=== PATIENT | female | born 1960 | race American Indian/Alaskan Native ===

== ENCOUNTER 2017-03-13 05:53 | Day surgery (SDC) | payer MEDICARE, OTHER ==
[2017-03-13] MEDS ORDERED: Sodium Chloride 0.9% 10 ML Syringe FLUSH PRN (06:00)
[2017-03-13] MEDS ORDERED: Dextrose 5%-0.45% NaCl 1,000 ML IV SCH (06:00)
[2017-03-13] MEDS ORDERED: fentaNYL 100 MCG/2 ML SDV ONE (06:15)
[2017-03-13] MEDS ORDERED: Midazolam 1 MG/ML 2 ML SDV ONE (06:15)
[2017-03-13] MEDS ORDERED: fentaNYL 100 MCG/2 ML SDV IV ONE ×3 (06:46→15:37)
[2017-03-13] MEDS ORDERED: Midazolam 1 MG/ML 2 ML SDV IV ONE ×3 (06:48→15:37)
[2017-03-13 08:56] VITALS: BP 107/43
--- NOTE | 2017-03-13 09:04 | LETTER ---
03/13/2017 Linda Posadas NP [facility] [address] [place] [address] RE: PEDRO SIDNEYMARKUS VENEGAS : 1960 Dear Ms. Posadas: Ms. Sidney Ellis had esophagogastroduodenoscopy done this morning and she tolerated the procedure well. I herewith send a copy of the endoscopy note and photographs for your review. Thank you. Sincerely, [facility] /[id number]
--- NOTE | 2017-03-13 11:16 | OR ---
DATE: 03/13/2017 PROCEDURE: Esophagogastroduodenoscopy and multiple pinch biopsies. INSTRUMENT USED: GIF-H180 Olympus video panendoscope. PREMEDICATIONS: No oral topical anesthesia used. Fentanyl 100 mcg intravenous, Versed 2 mg intravenous. Nasal O2 cannula. 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 INDICATION: Diabetic with previous gastric bypass surgery on long-term PPI with persistent upper abdominal pain, unexplained, and not responsive to present medical measures, also recently found to have iron-deficiency anemia. Esophagogastroduodenoscopy is performed for detection of any active erosive lesions, malignancy also under consideration, H. pylori status to be determined, small bowel biopsies to be obtained for celiac disease if indicated, endoscopic hemostasis therapy if needed. DESCRIPTION OF PROCEDURE: The scope was passed with ease. Adequate visualization of the esophagus was made from proximal to distal areas. No upper esophageal lesions identified. No distal esophageal stricture. No uphill or downhill esophageal varices. No Claudia-Villanueva tear. No evidence of erosive esophagitis by [place] criteria. No esophageal polyp or tumor mass identified. Z-line was seen at around 40 cm distal to the oral verge, configuration consistent with grade 1 by ZAP classification. No proximal gastric varices noted. Gastric fundus examination by retroflexion showed no polypoid lesions. No gastric ulcer, malignant mass, or vascular ectasia identified. Visualized loops of the small bowel were unremarkable. Multiple pinch biopsies, 4 in number were taken from the duodenum and sent for any histopathologic evidence of celiac disease. Multiple pinch biopsies were also taken from the distal and proximal gastric mucosa and sent for PyloriTek test for H. pylori and histopathology. Visualized surgical site showed no pathologic lesions. Gastric fundus examination by retroflexion showed no polypoid lesions. No bleeding was noted from any of the visualized areas at the completion of examination. Photographs were taken of the surgical site, gastric fundus, as well as well as distal esophagus. IMPRESSION: Status post gastric bypass surgery. The patient tolerated the procedure well. [facility] /[id number]
== END 2017-03-13 09:05 | disposition home or self-care (01) ==
LOC: DL.ENDO 05:53
PROVIDERS: ATTEND Internal Medicine Gastroenterology
DX: K29.50 Unspecified chronic gastritis without bleeding (principal); E66.01 Morbid (severe) obesity due to excess calories; I10 Essential (primary) hypertension; E78.5 Hyperlipidemia, unspecified; G47.33 Obstructive sleep apnea (adult) (pediatric); Z88.8 Allergy status to other drugs, medicaments and biological substances; Z98.84 Bariatric surgery status
CPT/HCPCS: 43239; 87077; J2250; J3010; J7042; 88305

== ENCOUNTER 2018-01-26 13:25 | Emergency (ER) | payer MEDICARE, OTHER ==
[2018-01-26] MEDS ORDERED: Sodium Chloride 0.9% 10 ML Syringe FLUSH PRN (14:29)
[2018-01-26 15:28] LABS: CHLORIDE,CL 103 mmol/L (101-111); SODIUM,NA 140 mmol/L (135-145)
[2018-01-26] MEDS ORDERED: Albuterol/Ipratropium 3.0-0.5 MG/3 ML Neb Soln NEB ONE (15:49)
[2018-01-26] MEDS ORDERED: GI Cocktail Oral Solution 30 ML PO ONE (15:49)
--- NOTE | 2018-01-26 16:16 | EDM.PDOC ---
Scribed by Nirali Phillips 01/26/18 1616 for London Hyde MD ED HPI GENERAL MEDICAL PROBLEM - General Chief Complaint: Respiratory Problem Stated Complaint: [id number] CANT BREATHE STOMACH PAIN Time Seen by Provider: 01/26/18 14:09 Source of Information: Reports: Patient, RN, RN Notes Reviewed History Limitations: Reports: No Limitations - History of Present Illness INITIAL COMMENTS - FREE TEXT/NARRATIVE: Patient presents by POV with complaint of increasing shortness of breath for 2 days. Also with increased acid reflux and constipation. Denies fever or chills. Denies cough, wheezing, orthopnea, chest pain or increased edema. Patient reports history of asthma. She is not sure if her current symptoms are related to asthma or not. Onset Date: 01/24/18 Duration: Getting Worse Location: Reports: Chest Quality: Reports: Ache Severity: Mild Improves with: Reports: None Worsens with: Reports: Eating Associated Symptoms: Reports: No Other Symptoms Epigastric Pain Score (Numeric/FACES): 3 - Related Data Allergies Allergy/AdvReac Type Severity Reaction Status Date / Time aminophylline Allergy Shortness Verified 01/26/18 13:49 of Breath iodine Allergy Shortness Verified 01/26/18 13:49 of Breath metformin Allergy UNKNOWN Verified 01/26/18 13:49 rosuvastatin Allergy intolerance Verified 01/26/18 13:49 simvastatin Allergy Diarrhea Verified 01/26/18 13:49 Home Meds: Home Meds Albuterol Sulfate 2.5 mg IH Q4HRRT PRN 08/15/14 [History] Albuterol Sulfate [Albuterol Sulfate HFA] 2 puff INH Q4HRRT PRN 08/15/14 [ History] Aspirin [Halfprin] 325 tab PO BEDTIME 08/15/14 [History] Carvedilol 1 tab PO BID 08/15/14 [History] Furosemide [Furosemide] 1 tab PO DAILY 08/15/14 [History] Insulin Aspart [NovoLOG] 12 - 20 units SQ TID 08/15/14 [History] Insulin Detemir [Levemir] 35 units SQ BID 08/15/14 [History] Lisinopril [Lisinopril] 1 tab PO DAILY 08/15/14 [History] amLODIPine Besylate [Amlodipine Besylate] 2.5 mg PO DAILY 08/15/14 [History] Calcium Carbonate [Tums] 1 tab PO DAILY PRN 09/28/14 [History] Dexlansoprazole [Dexilant] 60 mg PO DAILY 09/28/14 [History] Alendronate [Fosamax] 1 tab PO .WEEKLY 03/12/17 [History] Ergocalciferol (Vitamin D2) [Vitamin D2] 1 tab PO WEEKLY 03/12/17 [History] Fluticasone Propionate [Flonase] 1 spray INH ASDIRECTED PRN 03/12/17 [History] Fluticasone/Vilanterol [Breo Ellipta 100-25 MCG Inhalation Kit] 1 unit INH DAILY 03/12/17 [History] Mag Hydrox/Al Hydrox/Simeth [Maalox Maximum Strength Susp] 15 ml PO QID [History] Multivitamin [Multivitamins] 1 tab PO DAILY 03/12/17 [History] Vitamin B Complex 1 tab PO DAILY 03/12/17 [History] Ferrous Sulfate 324 mg PO BID 01/26/18 [History] Past Medical History HEENT History: Reports: Hard of Hearing, Impaired Vision, Sinusitis, Other (See Below) Other HEENT History: wears glasses, hearing loss L) ear, deviated nasal septum Cardiovascular History: Reports: High Cholesterol, Hypertension Respiratory History: Reports: Asthma, Bronchitis, Recurrent, Sleep Apnea Other Respiratory History: emphysema Gastrointestinal History: Reports: Chronic Diarrhea, GERD, Hepatitis Genitourinary History: Reports: None 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: Musculoskeletal History: Reports: Arthritis, Back Pain, Chronic, Fracture Neurological History: Reports: TIA Other Neuro History: degenerative joint disease of knee Psychiatric History: Reports: None Other Psychiatric History: hx alcoholism Endocrine/Metabolic History: Reports: Diabetes, Type II Hematologic History: Reports: Anemia, B12 Deficiency, Iron Deficiency Other Hematologic History: Vitamin D deficiency Immunologic History: Reports: None Oncologic (Cancer) History: Reports: Ovarian Dermatologic History: Reports: None - Infectious Disease History Infectious Disease History: Reports: Hepatitis A, Measles, Mumps - Past Surgical History Head Surgeries/Procedures: Reports: None GI Surgical History: Reports: Appendectomy, Cholecystectomy, Colonoscopy, Other (See Below) Other GI Surgeries/Procedures: obese Female Surgical History: Reports: Breast Biopsy, Section, Oophorectomy, Tubal Ligation Social & Family History - Family History Family Medical History: Noncontributory - Tobacco Use Smoking Status *Q: Never Smoker Years of Tobacco use: 15 Used Tobacco, but Quit: Yes Month Tobacco Last Used: 11/09/2003 Second Hand Smoke Exposure: No - Caffeine Use Caffeine Use: Reports: Soda, Tea - Alcohol Use Days Per Week of Alcohol Use: 0 - Recreational Drug Use Recreational Drug Use: No - Living Situation & Occupation Living situation: Reports: , with Family ED ROS GENERAL - Review of Systems Review Of Systems: ROS reveals no pertinent complaints other than HPI. ED EXAM, GENERAL - Physical Exam Exam: See Below Exam Limited By: No Limitations General Appearance: Alert, WD/WN, No Apparent Distress, Obese Nose: Normal Inspection, Normal Mucosa, No Blood Throat/Mouth: Normal Inspection, Normal Lips, Normal Teeth, Normal Gums, Normal Oropharynx, Normal Voice, No Airway Compromise Head: Atraumatic, Normocephalic Neck: Normal Inspection, Supple, Non-Tender, Full Range of Motion Respiratory/Chest: No Respiratory Distress, Lungs Clear, No Accessory Muscle Use , Chest Non-Tender, Decreased Breath Sounds. No: Rales, Rhonchi, Wheezing Cardiovascular: Normal Peripheral Pulses, Regular Rate, Rhythm, No Gallop, No JVD, No Murmur, No Rub, Other (trace pedal edema, stable/chronic for patient.) GI/Abdominal: Normal Bowel Sounds, Soft, No Distention, Tender (mild epigastric tenderness,otherwise benign obese abdomen.). No: Guarding, Rigid, Rebound (Female) Exam: Deferred Rectal (Female) Exam: Deferred Back Exam: Normal Inspection, Full Range of Motion, NT Extremities: Normal Range of Motion, Non-Tender Neurological: Alert, Oriented, CN II-XII Intact, Normal Cognition, Normal Gait, No Motor/Sensory Deficits Psychiatric: Normal Affect, Normal Mood Skin Exam: Warm, Dry, Intact, Normal Color, No Rash EKG INTERPRETATION EKG Date: 01/26/18 Time: 14:31 Rhythm: Other (sinus bradycardia) Rate (Beats/Min): 57 [place]: LAD-Left [place] Deviation (borderline) P-Wave: Present QRS: Normal ST-T: Normal QT: Prolonged Course - Vital Signs Last Recorded V/S: Last Vital Signs Temp 36.1 C 01/26/18 13:42 Pulse 81 01/26/18 16:05 Resp 20 01/26/18 16:05 BP 172/76 H 01/26/18 13:42 Pulse Ox 96 01/26/18 16:05 - Orders/Labs/Meds Orders: Active Orders 24 hr Category Date Time Status EKG 12 Lead [EKG Documentation Completion] [RC] STAT Care 01/26/18 14:29 Active Peripheral IV Care [RC] . DIRECTED Care 01/26/18 14:29 Active RT Aerosol Therapy [RC] ASDIRECTED Care 01/26/18 15:49 Active Abdomen 2V AP Upright Decub [CR] Urgent Exams 01/26/18 14:31 Taken Chest 2V [CR] Stat Exams 01/26/18 14:30 Taken Sodium Chloride 0.9% [Saline Flush] Med 01/26/18 14:29 Active 10 ml FLUSH ASDIRECTED PRN Peripheral IV Insertion Adult [OM.PC] Stat Oth 01/26/18 14:29 Ordered Medication Orders Sodium Chloride (Saline Flush) 10 ml FLUSH ASDIRECTED PRN PRN Reason: Keep Vein Open Last Admin: 01/26/18 15:04 Dose: 10 ml Labs: Laboratory Tests 01/26/18 01/26/18 01/26/18 Range/Units 14:59 14:59 15:03 WBC 10.9 H (5.0-10.0) 10^3/uL RBC 5.48 H (4.2-5.4) 10^6/uL Hgb 14.8 (12.0-16.0) g/dL Hct 43.3 (37.0-47.0) % MCV 79.0 L (80-100) fL MCH 27.0 (27.0-34.0) pg MCHC 34.2 (33.0-35.0) g/dL Plt Count 270 (150-450) 10^3/uL Neut % (Auto) 71.6 (42.2-75.2) % Lymph % (Auto) 20.2 L (20.5-50.1) % Phillips % (Auto) 5.9 (2-8) % Eos % (Auto) 1.7 (1.0-3.0) % Baso % (Auto) 0.6 (0.0-1.0) % Sodium 140 (135-145) mmol/L Potassium 3.7 (3.6-5.0) mmol/L Chloride 103 (101-111) mmol/L Carbon Dioxide 28.0 (21.0-31.0) mmol/L Anion Gap 12.7 BUN 11 (7-18) mg/dL Creatinine 0.7 (0.6-1.3) mg/dL Est Cr Clr Drug Dosing 89.45 mL/min Estimated GFR (MDRD) > 60 BUN/Creatinine Ratio 15.71 Glucose 113 H (74-105) mg/dL Calcium 9.4 (8.4-10.2) mg/dl Total Bilirubin 0.4 (0.2-1.0) mg/dL AST 34 (10-42) IU/L ALT 27 (10-60) IU/L Alkaline Phosphatase 126 H (42-121) IU/L Troponin I < 0.02 (0.00-0.02) ng/ml B-Natriuretic Peptide 73 (0-100) pg/ml Total Protein 7.8 (6.7-8.2) g/dl Albumin 4.1 (3.2-5.5) g/dl Globulin 3.7 Albumin/Globulin Ratio 1.11 Urine Color Yellow (YELLOW) Urine Appearance Clear (CLEAR) Urine pH 5.5 (5.0-9.0) Ur Specific [place] <= 1.005 (1.005-1.030) Urine Protein Negative (NEGATIVE) Urine Glucose (UA) Negative (NEGATIVE) Urine Ketones Negative (NEGATIVE) Urine Occult Blood Negative (NEGATIVE) Urine Nitrite Negative (NEGATIVE) Urine Bilirubin Negative (NEGATIVE) Urine Urobilinogen 0.2 (0.2-1.0) mg/dL Ur Leukocyte Esterase Moderate H (NEGATIVE) Urine RBC Not seen /HPF Urine WBC 0-5 (0-5/HPF) /HPF Ur Epithelial Cells Few /HPF Urine Bacteria Rare (0-FEW/HPF) /HPF Meds: Medications Generic Name Dose Route Start Last Admin Trade Name Freq PRN Reason Stop Dose Admin Sodium Chloride 10 ml 01/26/18 14:29 01/26/18 15:04 Saline Flush FLUSH 10 ml ASDIRECTED PRN Administration Keep Vein Open Discontinued Medications Generic Name Dose Route Start Last Admin Trade Name Freq PRN Reason Stop Dose Admin Al Hydroxide/Mg Hydroxide 30 ml 01/26/18 15:49 01/26/18 15:52 Gi Cocktail PO 01/26/18 15:50 30 ml ONETIME ONE Administration Albuterol/Ipratropium 3 ml 01/26/18 15:49 01/26/18 15:57 Duoneb 3.0-0.5 Mg/3 Ml NEB 01/26/18 15:50 3 ml ONETIME ONE Administration - Radiology Interpretation Free Text/Narrative:: X-ray abdomen: No acute findings. See rad report. X-ray chest: No acute cardiopulmonary process. See rad report. Departure - Departure Time of Disposition: 16:12 Disposition: Home, Self-Care 01 Condition: Fair Clinical Impression: Shortness of breath, History of asthma GERD (gastroesophageal reflux disease) Qualifiers: Esophagitis presence: esophagitis presence not specified Qualified Code(s): K21.9 - Gastro-esophageal reflux disease without esophagitis - Discharge Information Instructions: Shortness of Breath, Adult, [id number], Asthma, Adult, Easy-to- Read, Food Choices for Gastroesophageal Reflux Disease, Child, [place] Diet Forms: ED Department Discharge Additional Instructions: Use Albuterol inhaler 2 puffs every 4 hours while awake. Continue your current medications as prescribed. May use Maalox and [id number] laxative as needed. Follow up with your primary doctor in the next week if not improved. Return to ER at any time. - My Orders Last 24 Hours: My Active Orders 01/26/18 14:29 EKG 12 Lead [EKG Documentation Completion] [RC] STAT Peripheral IV Care [RC] . DIRECTED Sodium Chloride 0.9% [Saline Flush] 10 ml FLUSH ASDIRECTED PRN Peripheral IV Insertion Adult [OM.PC] Stat 01/26/18 14:30 Chest 2V [CR] Stat 01/26/18 14:31 Abdomen 2V AP Upright Decub [CR] Urgent 01/26/18 15:49 RT Aerosol Therapy [RC] ASDIRECTED - Assessment/Plan Last 24 Hours: My Active Orders 01/26/18 14:29 EKG 12 Lead [EKG Documentation Completion] [RC] STAT Peripheral IV Care [RC] . DIRECTED Sodium Chloride 0.9% [Saline Flush] 10 ml FLUSH ASDIRECTED PRN Peripheral IV Insertion Adult [OM.PC] Stat 01/26/18 14:30 Chest 2V [CR] Stat 01/26/18 14:31 Abdomen 2V AP Upright Decub [CR] Urgent 01/26/18 15:49 RT Aerosol Therapy [RC] ASDIRECTED I have read and agree with the documentation that has been completed regarding this visit. By signing this record, I attest that the documentation was completed in my physical presence and is an accurate record of the encounter.
[2018-01-26 16:22] VITALS: BP 137/51
--- NOTE | 2018-01-29 11:39 | EKG ---
01/26/2018 - SIDNEY VASQUEZ - EKG shows heart rate of 57. Rhythm of sinus bradycardia. There is a prolonged QT interval with a QTc of 511 and left axis deviation. [facility] /[id number]
== END 2018-01-26 16:23 | disposition home or self-care (01) ==
LOC: DL.ED 13:25
DX: J45.909 Unspecified asthma, uncomplicated (principal); K21.9 Gastro-esophageal reflux disease without esophagitis; I10 Essential (primary) hypertension; E78.00 Pure hypercholesterolemia, unspecified; E11.9 Type 2 diabetes mellitus without complications; Z87.891 Personal history of nicotine dependence; Z79.4 Long term (current) use of insulin; Z79.82 Long term (current) use of aspirin; Z79.51 Long term (current) use of inhaled steroids; Z79.899 Other long term (current) drug therapy; Z88.8 Allergy status to other drugs, medicaments and biological substances
CPT/HCPCS: 36415; 71046; 74021; 80053; 81001; 83880; 84484; 85025; 93005; 94640; 99285; A9270; J7050; 93010

== ENCOUNTER 2021-06-18 19:52 | Emergency (ER) | payer MEDICARE, OTHER ==
[2021-06-18] MEDS ORDERED: Acetaminophen/HYDROcodone 325-5 MG Tab PO ONE ×2 (19:53→22:43)
[2021-06-18 20:27] VITALS: BP 157/62; PULSE 66
--- NOTE | 2021-06-18 20:53 | EDM.PDOC ---
ED HPI GENERAL MEDICAL PROBLEM - General Chief Complaint: Lower Extremity Injury/Pain Stated Complaint: FELT A POP / CAN'T STAND ON LEG Time Seen by Provider: 06/18/21 20:33 Source of Information: Reports: Patient, RN History Limitations: Reports: No Limitations - History of Present Illness INITIAL COMMENTS - FREE TEXT/NARRATIVE: 61-year-old female with a history of a left foot drop who presents to the ER for an evaluation of left knee pain. Patient reports that she was trying to get off the toilet to her wheelchair and felt a pop in her left knee about an hour prior to ER visit. Patient reports she normally ambulates with a walker but she was just going to use the bathroom so she decided to use her wheelchair instead. She reports pain has been worse with ambulation. She has not tried anything for pain. Left Knee Pain Score (Numeric/FACES): 6 - Related Data Allergies Allergy/AdvReac Type Severity Reaction Status Date / Time aminophylline Allergy Shortness Verified 01/26/18 13:49 of Breath iodine Allergy Shortness Verified 01/26/18 13:49 of Breath metformin Allergy UNKNOWN Verified 01/26/18 13:49 rosuvastatin Allergy intolerance Verified 01/26/18 13:49 simvastatin Allergy Diarrhea Verified 01/26/18 13:49 Home Meds: Home Meds Albuterol Sulfate 2.5 mg IH Q4HRRT PRN 08/15/14 [History] Albuterol Sulfate [Albuterol Sulfate HFA] 2 puff INH Q4HRRT PRN 08/15/14 [History] Aspirin [Halfprin] 325 tab PO BEDTIME 08/15/14 [History] Furosemide 1 tab PO DAILY 08/15/14 [History] Insulin Aspart [NovoLOG] 12 - 20 units SQ TID 08/15/14 [History] Insulin Detemir [Levemir] 35 units SQ BID 08/15/14 [History] Lisinopril 1 tab PO DAILY 08/15/14 [History] amLODIPine Besylate [Amlodipine Besylate] 2.5 mg PO DAILY 08/15/14 [History] carvediloL [Carvedilol] 1 tab PO BID 08/15/14 [History] Calcium Carbonate [Tums] 1 tab PO DAILY PRN 09/28/14 [History] Dexlansoprazole [Dexilant] 60 mg PO DAILY 09/28/14 [History] Alendronate [Fosamax] 1 tab PO .WEEKLY 03/12/17 [History] Ergocalciferol (Vitamin D2) [Vitamin D2] 1 tab PO WEEKLY 03/12/17 [History] Fluticasone Propionate [Flonase] 1 spray INH ASDIRECTED PRN 03/12/17 [History] Fluticasone/Vilanterol [Breo Ellipta 100-25 MCG Inhalation Kit] 1 unit INH DAILY 03/12/17 [History] Mag Hydrox/Aluminum Hyd/Simeth [Maalox Maximum Strength Susp] 15 ml PO QID 03/12/17 [History] Multivitamin [Multivitamins] 1 tab PO DAILY 03/12/17 [History] Vitamin B Complex 1 tab PO DAILY 03/12/17 [History] Ferrous Sulfate 324 mg PO BID 01/26/18 [History] Past Medical History HEENT History: Reports: Hard of Hearing, Impaired Vision, Sinusitis, Other (See Below) Other HEENT History: wears glasses, hearing loss L) ear, deviated nasal septum Cardiovascular History: Reports: High Cholesterol, Hypertension Respiratory History: Reports: Asthma, Bronchitis, Recurrent, Sleep Apnea Other Respiratory History: emphysema Gastrointestinal History: Reports: Chronic Diarrhea, GERD, Hepatitis Genitourinary History: Reports: None 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: Musculoskeletal History: Reports: Arthritis, Back Pain, Chronic, Fracture, Osteoporosis, Other (See Below) Other Musculoskeletal History: drop foot Neurological History: Reports: TIA Other Neuro History: degenerative joint disease of knee Psychiatric History: Reports: None Other Psychiatric History: hx alcoholism Endocrine/Metabolic History: Reports: Diabetes, Type II, Obesity/BMI 30+ Hematologic History: Reports: Anemia, B12 Deficiency, Iron Deficiency Other Hematologic History: Vitamin D deficiency Immunologic History: Reports: None Oncologic (Cancer) History: Reports: Ovarian Dermatologic History: Reports: None - Infectious Disease History Infectious Disease History: Reports: Hepatitis A, Measles, Mumps, Novel Coronavirus - Past Surgical History Head Surgeries/Procedures: Reports: None HEENT Surgical History: Reports: Tonsillectomy Cardiovascular Surgical History: Reports: Other (See Below) Other Cardiovascular Surgeries/Procedures: angiogram GI Surgical History: Reports: Appendectomy, Cholecystectomy, Colonoscopy, Other (See Below) Other GI Surgeries/Procedures: obese Female Surgical History: Reports: Breast Biopsy, Section, Oophorectomy, Tubal Ligation Social & Family History - Family History Family Medical History: No Pertinent Family History - Tobacco Use Tobacco Use Status *Q: Never Tobacco User Second Hand Smoke Exposure: No - Caffeine Use Caffeine Use: Reports: Soda, Tea - Recreational Drug Use Recreational Drug Use: No - Living Situation & Occupation Living situation: Reports: , with Family Review of Systems - Review of Systems Review Of Systems: Comprehensive ROS is negative, except as noted in HPI. ED EXAM, GENERAL - Physical Exam Exam: See Below General Appearance: Alert, Moderate Distress Respiratory/Chest: No Respiratory Distress, Lungs Clear, Normal Breath Sounds, No Accessory Muscle Use, Chest Non-Tender Cardiovascular: Normal Peripheral Pulses, Regular Rate, Rhythm, No Edema, No Gallop, No JVD, No Murmur, No Rub Peripheral Pulses: 2+: Posterior Tibial (L), Dorsalis Pedis (L) Extremities: Normal Capillary Refill, Limited Range of Motion (due to pain expecially around the medial region of the left knee. No swelling noted). No: Randell's Sign Neurological: Alert, Oriented Psychiatric: Anxious Skin Exam: Warm Lymphatic: No Adenopathy Course - Vital Signs Last Recorded V/S: Last Vital Signs Temp 97.9 F 06/18/21 20:20 Pulse 66 06/18/21 20:20 Resp 18 06/18/21 20:20 BP 157/62 H 06/18/21 20:20 Pulse Ox 96 06/18/21 20:20 - Orders/Labs/Meds Meds: Medications Discontinued Medications Generic Name Dose Route Start Last Admin Trade Name Yolie PRN Reason Stop Dose Admin Hydrocodone Bitart/Acetaminophen 1 tab 06/18/21 22:43 06/18/21 22:51 Acetaminophen/Hydrocodone 325-5 Mg Tab PO 06/18/21 22:44 1 tab ONETIME ONE Administration Hydrocodone Bitart/Acetaminophen Confirm 06/18/21 22:47 06/18/21 22:53 Acetaminophen/Hydrocodone 325-5 Mg Tab Administered 06/18/21 22:48 Not Given Dose 5 tab .ROUTE .STK-MED ONE - Re-Assessments/Exams Free Text/Narrative Re-Assessment/Exam: Reviewed exam findings and x-ray results with patient. Hydrocodone administered for pain with 5 pills sent home with patient as needed. Knee brace applied with crutches. Encourage patient to follow-up with PCP in 1 day and possible Ortho referral. Patient verbalized understanding. Encouraged [facility]. Departure - Departure Time of Disposition: 22:52 Disposition: Home, Self-Care 01 Condition: Fair Clinical Impression: Injury of left knee Qualifiers: Encounter type: initial encounter Qualified Code(s): S89.92XA - Unspecified injury of left lower leg, initial encounter Degenerative arthritis of left knee Qualifiers: Osteoarthritis type: unspecified Qualified Code(s): M17.12 - Unilateral primary osteoarthritis, left knee - Discharge Information Instructions: Knee Sprain, Adult, [id number] Forms: ED Department Discharge Additional Instructions: Encourage patient to follow-up with PCP in 1 day and possible Ortho referral. Encouraged [facility]. Patient verbalized understanding. Sepsis Event Note (ED) - Evaluation Sepsis Screening Result: No Definite Risk - Focused Exam Vital Signs: Vital Signs Temp Pulse Resp BP Pulse Ox 06/18/21 20:20 97.9 F 66 18 157/62 H 96
--- NOTE | 2021-06-18 21:57 | CR ---
PROCEDURE INFORMATION: Exam: XR Left Knee Exam date and time: 06/18/2021 8:47 PM Age: 61 years old Clinical indication: Other: Acute pain--no known trauma; Additional info: Left knee injury TECHNIQUE: Imaging protocol: XR Left knee. Views: 1 or 2 views. COMPARISON: No relevant prior studies available. FINDINGS: Bones/joints: There are mild degenerative changes of the knee joint, predominantly involving the medial joint compartment. There is no evidence of acute fracture. There is no evidence of joint malalignment or dislocation. Soft tissues: There are no soft tissue masses or fluid collections. Vasculature: The vasculature demonstrates diffuse mild atherosclerotic calcification. IMPRESSION: 1. There are mild degenerative changes of the knee joint, predominantly involving the medial joint compartment. 2. No evidence of acute fracture. 3. No evidence of acute dislocation.
[2021-06-18] MEDS ORDERED: Acetaminophen/HYDROcodone 325-5 MG Tab ONE (22:47)
== END 2021-06-18 23:02 | disposition home or self-care (01) ==
LOC: DL.ED 19:52
DX: S89.92XA Unspecified injury of left lower leg, initial encounter (principal); M17.12 Unilateral primary osteoarthritis, left knee; E78.00 Pure hypercholesterolemia, unspecified; I10 Essential (primary) hypertension; E11.9 Type 2 diabetes mellitus without complications; E66.9 Obesity, unspecified; Z68.30 Body mass index [BMI] 30.0-30.9, adult; Z88.8 Allergy status to other drugs, medicaments and biological substances; X50.9XXA Other and unspecified overexertion or strenuous movements or postures, initial encounter
CPT/HCPCS: 73560; 99283; A9270